=== PATIENT | female | born 2000 | race Caucasian/White ===

== ENCOUNTER 2020-01-13 11:06 | Outpatient (CLI) | payer OTHER | END 2020-01-13 23:59 | disposition home or self-care (01) | LOC: STAR 11:06 | PROVIDERS: ATTEND Surgery | DX: Z02.9 Encounter for administrative examinations, unspecified (principal) ==

== ENCOUNTER 2020-01-17 11:33 | Day surgery (SDC) | payer OTHER ==
[~2020-01-17] VITALS: Ht 165.1 cm; Wt 50.0 kg
[~2020-01-17 11:33] MED LIST: BUPIVACAINE/PF-EPI 0.5% 1:200K ONE
[2020-01-17] MEDS ORDERED: LACTATED RINGERS 1,000 ML IV SCH (11:42)
[2020-01-17] MEDS ORDERED: CHLORHEXIDINE 15 ML UDC MM STA (11:45)
[2020-01-17 12:04] VITALS: BP 119/80
[2020-01-17] MEDS ORDERED: FENTANYL PF 100 MCG/2ML ONE (12:28)
[2020-01-17] MEDS ORDERED: MIDAZOLAM 1 MG/ML, 2ML ONE (12:28)
[2020-01-17 12:49] LABS: HCG UR SG 1.024 (1.003-1.030)
[2020-01-17] MEDS ORDERED: OXYcodone 5 MG/5 ML ORAL.SOL UDC PO PRN (13:30)
[2020-01-17] MEDS ORDERED: FENTANYL PF 100 MCG/2ML IV PRN (13:30)
[2020-01-17] MEDS ORDERED: hydrALAzine 20 MG/ML, 1ML IV PRN (13:30)
[2020-01-17] MEDS ORDERED: PROMETHAZINE 25 MG/ML, 1ML IVPush PRN (13:30)
[2020-01-17] MEDS ORDERED: LABETALOL 5MG/ML, 20ML IV PRN (13:30)
[2020-01-17] MEDS ORDERED: ALBUTEROL SULFATE 2.5 MG/3 ML NPPB PRN (13:30)
[2020-01-17] MEDS ORDERED: HYDROmorphone 1 MG/ML, 1ML INJ IVPush PRN (13:30)
[2020-01-17] MEDS ORDERED: LORazepam 2 MG/ML, 1ML IVPush PRN (13:30)
[2020-01-17] MEDS ORDERED: ACETAMINOPHEN 325 MG TABLET PO PRN (13:30)
[2020-01-17] MEDS ORDERED: PROPOFOL 10 MG/ML, 20ML ONE (13:39)
[2020-01-17] MEDS ORDERED: CEFAZOLIN 1,000 MG ONE (13:39)
[2020-01-17] MEDS ORDERED: DEXAMETHASONE 4 MG/ML, 1ML ONE ×3 (13:39)
[2020-01-17] MEDS ORDERED: LIDOCAINE-MPF 2% ,5ML ONE (13:39)
[2020-01-17] MEDS ORDERED: ONDANSETRON 2MG/ML, 2ML ONE (13:39)
[2020-01-17] MEDS ORDERED: KETOROLAC 30 MG/1 ML ONE (13:39)
[2020-01-17] MEDS ORDERED: MEPERIDINE/PF 25MG/ML,1ML ONE (14:34)
[2020-01-17] MEDS: MEPERIDINE/PF 25MG/0.5ML IVPush PRN ×2 (14:36→14:40)
== END 2020-01-17 16:00 | disposition home or self-care (01) ==
LOC: OUT 11:33
PROVIDERS: ATTEND Surgery
DX: K42.0 Umbilical hernia with obstruction, without gangrene (principal); Z11.59 Encounter for screening for other viral diseases
CPT/HCPCS: 36415; 49587; 81025; 87635; J0690; J1100; J1885; J2175; J2250; J2405; J2704; J3010; J7120